=== PATIENT | male | born 1960 | race Two or more races ===

== ENCOUNTER 2022-12-03 07:45 | Emergency (ER) | payer SELFPAY ==
[2022-12-03] VITALS (24 sets, daily range): BP systolic 111–147; BP diastolic 80–99; PULSE 94–130; RESP 10–30; O2SAT 93–100; BMI 35.9
--- NOTE | 2022-12-03 | XR_ITS ---
The [address] [address] Patient Name: LEONORA FLORES MRN: [id number] date: 1960 Sex: M Assigned Patient Location: ER Current Patient Location: Accession/Order Number: [id number] Exam Date: 12/03/2022 07:50 Report Date: 12/03/2022 08:36 At the request of: YAIMA HIGUERA Procedure: XR chest 1V XR chest 1V CLINICAL: CHEST PAIN COMPARISON: No prior studies are available. TECHNIQUE: Single AP view of the chest. FINDINGS: Heart size and pulmonary vasculature are within normal limits. No airspace consolidation or large effusion is seen. Question interstitial infiltrate left lung base. There is marked subcutaneous emphysema throughout the entire chest and supraclavicular regions. No definite pneumothorax is identified radiographically, however there is air along the left paratracheal region below the thoracic inlet suggesting a component of pneumomediastinum. Further evaluation with chest CT is recommended to better assess these findings. XR/XR chest 1V IMPRESSION: Marked diffuse subcutaneous emphysema and suspected pneumomediastinum. Further evaluation with chest CT is recommended. No dense airspace consolidation or pleural effusion. No definite pneumothorax is identified. Interstitial infiltrate suspected at the left lung base. Findings discussed with Dr. Higuera at the time of interpretation 8:30 AM EST 12/03/2022. Electronically authenticated by: CLAUDIO HALL Date: 12/03/2022 08:36
--- NOTE | 2022-12-03 08:22 | XR_ITS ---
The [address] [address] Patient Name: LEONORA FLORES MRN: [id number] date: 1960 Sex: M Assigned Patient Location: ER Current Patient Location: ER Accession/Order Number: [id number] Exam Date: 12/03/2022 09:00 Report Date: 12/03/2022 10:10 At the request of: YAIMA HIGUERA Procedure: XR chest 1V CHEST X-RAY, 1 VIEW HISTORY: Endotracheal tube placement. COMPARISON: 12/03/2022 7:29 AM. FINDINGS: There has been placement of an endotracheal tube distal tip 6.3 cm above the anayeli. There is significant bilateral diffuse subcutaneous emphysema again visualized. The heart size is stable. There is a pneumomediastinum. There are bilateral pneumothoraces. The lungs are grossly clear. There are no pleural effusions. XR/XR chest 1V IMPRESSION: Bilateral pneumothoraces. Pneumomediastinum. Significant diffuse subcutaneous changes emphysema. Endotracheal tube 6.3 cm with above the anayeli. Electronically authenticated by: LANDY RYAN Date: 12/03/2022 10:10
--- NOTE | 2022-12-03 08:22 | XR_ITS ---
The [address] [address] Patient Name: LEONORA FLORES MRN: [id number] date: 1960 Sex: M Assigned Patient Location: ER Current Patient Location: Accession/Order Number: [id number] Exam Date: 12/03/2022 09:00 Report Date: 12/03/2022 10:11 At the request of: YAIMA HIGUERA Procedure: XR pelvis 1-2V PELVIS AP X-RAY 1 VIEW HISTORY: Pain. FINDINGS: The entire pelvis is not imaged. The pubic rami appear intact. There is no evidence of hip dislocation. The evaluation of the right hip is limited due to rotation. There is no evidence of a left hip fracture. There is subcutaneous emphysema. XR/XR pelvis 1-2V IMPRESSION: Limited evaluation, no acute bony abnormality in the visualized pelvis. Subcutaneous emphysema. Electronically authenticated by: LANDY RYAN Date: 12/03/2022 10:11
--- NOTE | 2022-12-03 08:22 | CT_ITS ---
The [address] [address] Patient Name: LEONORA FLORES MRN: [id number] date: 1960 Sex: M Assigned Patient Location: ED.MAIN Current Patient Location: Accession/Order Number: [id number] Exam Date: 12/03/2022 09:00 Report Date: 12/03/2022 10:27 At the request of: YAIMA HIGUERA Procedure: CT abdomen pelvis wo con EXAM: CT head/brain wo con, CT cervical spine wo con, CT chest wo con, CT abdomen pelvis wo con HISTORY: fall COMPARISON: Chest radiograph performed the same day. TECHNIQUE: Axial noncontrast CT imaging of the head and cervical spine was performed with coronal and sagittal reformats. Axial noncontrast CT imaging of the chest, abdomen and pelvis was performed with coronal and sagittal reformats. This CT exam was performed using one or more of the following dose reduction techniques: Automated exposure control, adjustment of the MA and/or kV according to patient size, or use of iterative reconstruction technique. FINDINGS: CT HEAD Calvarium/skull base: No evidence of acute fracture or destructive lesion. Mastoids and middle ears demonstrate no substantial mucosal disease. Paranasal sinuses: No air fluid levels. Brain: No acute intracranial hemorrhage. No acute large vascular territory infarct. No mass lesion or mass effect. No hydrocephalus. CT CERVICAL SPINE Alignment: Straightening of the normal cervical lordosis with trace anterolisthesis of C3 on C4. Vertebrae: Vertebral body heights are maintained. No fracture. Craniocervical junction: No focal abnormality. Degenerative changes: Posterior disc osteophyte complexes and disc height loss are noted at multiple levels greatest at C5-C6 and C6-C7 with at least moderate canal stenosis at C5-C6. Multilevel moderate and/or advanced facet arthropathy is present with multilevel moderate to advanced uncovertebral arthropathy. There is advanced right foraminal stenosis at C4-C5 and advanced bilateral foraminal stenosis at C5-C6 with moderate bilateral foraminal stenosis at C6-C7. Additional Comments: There is severe subcutaneous subcutaneous and deep neck soft tissue emphysema extending to involve the superior parietal and temporal scalp. There is opacification of the nasopharynx likely related to patient's intubated status. There is partial opacification of the bilateral external auditory canals possibly relating to retained cerumen. Multiple dental caries are noted periapical lucency is seen involving the right second bicuspid with associated radicular cyst. CT CHEST Chest wall/thoracic inlet/central airways: There is extensive subcutaneous and deep soft tissue emphysema involving the chest slightly greater anteriorly but seen diffusely throughout the chest wall. Endotracheal tube tip terminates in appropriate position above the level of the anayeli. Thyroid: Visualized portions within normal limits. Mediastinum/ron/axillae: Extensive pneumomediastinum. Heart/vessels: The pulmonary artery and aorta are normal in course and caliber. Heart is normal in size. No pericardial effusion. Pleura/lungs: Relatively small bilateral pneumothorax are present greater anteriorly measuring up to 16 mm on the right and 19 mm on the left. Small bilateral pneumothorax. No gross evidence for overt parenchymal laceration. A left chest wall pigtail thoracostomy tube is present terminating within the anterior pleural space just inside the chest wall. Lungs: No focal airspace disease or edema. MSK: Displaced fractures of the left seventh and eighth ribs are noted laterally. CT ABDOMEN/PELVIS Liver: Within normal limits. Gallbladder/biliary: Cholelithiasis. These pericholecystic fluid likely relating to ascites. Spleen: Within normal limits. Pancreas: Within normal limits. Adrenals: Within normal limits. Kidneys: No radiopaque calculi or hydronephrosis. Peritoneum: There is trace pneumoperitoneum adjacent to the left iliopsoas muscle and iliac vessels (series 3 images 94 through 108. Air is seen involving the abdominal wall musculature and extending to involve the fascial tissues without definite extension to involve the peritoneum. Small volume ascites is present measuring 24 Hounsfield units most consistent with simple fluid. This is greatest along the right abdomen and pelvis. Mesentery: Within normal limits. Extraperitoneum: Within normal limits. Gastrointestinal tract: Hiatal hernia. There is nonspecific wall thickening involving the cecum through proximal transverse colon without adjacent inflammatory stranding. Ureters: Within normal limits. Bladder: Within normal limits. Reproductive System: Within normal limits. Vascular: Atherosclerotic calcification of the abdominal aorta and branch vessels without aneurysm. MSK: No acute osseous or soft tissue findings. Advanced disc height loss with vacuum disc phenomena at the level of L5-S1 with associated left central extrusion with approximately 7 mm caudal migration of disc material with associated vacuum disc. Diffuse disc bulge with at least moderate canal stenosis at L4-L5. CT/CT abdomen pelvis wo con IMPRESSION: CT head and cervical spine 1. No acute intracranial process. 2. No acute fracture or malalignment of the cervical spine. 3. Moderate degenerative changes of cervical spine with multilevel moderate canal stenosis and moderate and/or advanced foraminal stenosis at multiple levels. 4. There is extensive subcutaneous and deep neck emphysema extending to involve the scalp and facial soft tissues. 5. Partially visualized prominent dental disease involving the maxillary teeth. CT chest abdomen pelvis 1. Small bilateral pneumothorax with associated hemothorax. No overt evidence for pulmonary laceration. A left pigtail thoracostomy tube is noted. 2. Extensive pneumomediastinum. 3. Extensive subcutaneous and deep soft tissue emphysema involving the chest and abdominal soft tissues extending into the pelvis. 4. Displace left lateral eighth and ninth rib fractures. 5. Trace pneumoperitoneum is noted. Additionally there is small volume ascites which is abnormal for patient's age. This is nonspecific and it indeterminant in etiology given appearance on remaining abdominal soft tissues although can be seen in the setting of hollow visceral injury. 6. Nonspecific wall thickening involving the right colon with slightly more prominent ascites along the pelvis and right colon. 7. Cholelithiasis. 8. No acute fracture or traumatic malalignment of the thoracic or lumbar spine. 9. Hiatal hernia. Notification of Results Provider/Agent notified: Dr. Ita Higuera Time/Date notified: 12/03/2022 8:22 AM MDT Notifying Staff: Dr. Campbell Electronically authenticated by: MIHIR CAMPBELL Date: 12/03/2022 10:27
--- NOTE | 2022-12-03 08:22 | ECG_ITS ---
The [facility] Test Date: 2022-12-03 Pat Name: LEONORA FLORES Department: Room: - Gender: Male [employer]: : 1960 Requested By: Order Number: [id number] Reading MD: GUS MERCER Measurements Intervals Prospect Rate: 114 P: 76 VT: 184 QRS: -50 QRSD: 84 T: 90 QT: 334 QTc: 401 Interpretive Statements 1120 Sinus tachycardia 1470 with occasional supraventricular premature complexes 3113 Cannot rule out anterior myocardial infarction, probably old 7200 Abnormal left axis deviation 8102 Low QRS voltage in chest leads 0104 ELECTRODE(S) DETACHED ... Repeat ECG is requested 9150 abnormal ECG No previous ECG available for comparison Electronically Signed On 12-03-2022 18:44:36 EDT by GUS MERCER
[2022-12-03 08:49] LABS: Basophils Absolute Auto 0.1 10^3/uL (0.0-0.1); Basophils Percent Auto 0.3 % (0.2-2.0); Eosinophils Absolute Auto 0.1 10^3/uL (0.0-0.7); Eosinophils Percent Auto 0.3 % (0.9-7.0); Immature Granulocytes Abs Auto 0.07 10^3/uL (0.00-0.03); Immature Granulocytes Pct Auto 0.4 % (0.0-0.5); Lymphocytes Absolute Auto 3.1 10^3/uL (1.2-3.8); Mean Corpuscular HGB Conc 34.8 g/dL (29.9-35.2); Mean Corpuscular Hemoglobin 38.2 pg (25.9-34.0); Mean Corpuscular Volume 109.8 fL (80.0-94.0); Mean Platelet Volume 11.1 fL (9.5-13.5); Monocytes Absolute Auto 0.9 10^3/uL (0.3-0.8); Monocytes Percent Auto 5.1 % (1.7-12.0); Neutrophils Absolute Auto 13.2 10^3/uL (1.4-6.5); Neutrophils Percent Auto 75.9 % (43.0-75.0); Platelet Count 179 10^3/uL (150-450); Red Blood Count 4.19 10^6/uL (4.70-6.10); Red Cell Distribution Width 12.4 % (11.0-15.0); White Blood Count 17.4 10^3/uL (4.0-11.0)
[2022-12-03 08:57] LABS: INR 1.23; Prothrombin Time 12.9 sec (9.0-11.6)
[2022-12-03 09:03] LABS: Alanine Aminotransferase 37 U/L (16-63); Albumin Globulin Ratio 0.7; Albumin Level 2.8 g/dL (3.4-5.0); Alkaline Phosphatase 240 U/L (46-116); Anion Gap 20.2; Aspartate Amino Transferase 114 U/L (15-37); BUN Creatinine Ratio 7.6; Bilirubin Total 4.2 mg/dL (0.2-1.0); Calcium 8.4 mg/dL (8.5-10.1); Carbon Dioxide 19.8 mmol/L (21.0-32.0); Chloride 98 mmol/L (98-107); Estimated GFR (African America >60 (>=60); Estimated GFR (Non-African Ame >60 (>=60); Ethanol <3 mg/dL; Glucose 180 mg/dL (74-106); Sodium 135 mmol/L (136-145); Total Protein 6.8 g/dL (6.4-8.2)
[2022-12-03 09:09] LABS: Partial Thromboplastin Time 30.5 sec (22.3-36.2)
--- NOTE | 2022-12-03 09:11 | PC.NURSE ---
pt arrived at 0740 per LS15 from home per EMS pt having allergic reaction. pt states he did have a fall last night hitting his left mid back on a heater. pt arrived with facial swelling, shortness of breath and left sided back pain. Dr. garcia at bedside states pt appears to have pneumothorax. 0751 pt given solumedrol per verbal order. 0752 Dr. Garcia prepping for chest tube insertion. 0752 4mg of morphine given. 0754 chest tube inserted into left side axillary. 0759 chest tube secure. 0800 Dr. Garcia prepping for intubation. 0806 1st intubation attempt. 0807 intubation failed. 0809 2nd intubation attempt. 0810 3rd intubation attempt successful, 7 1/2 sized tube placed 26 at the lip. 0813 etomidate 20mg and 2mg ativan iv push, 0814 fentanyl 25mcg iv push. 0816 soft restrints applied. 0819 pants removed for ann cahteter inserted. pt scrotum found to swollen and full of air. 0820 NG attempted. 0825 2nd ng attempt. 0827 3rd ng attempt per dr. garcia failed. 0836 2nd bag of NS started. 0845 chest tube removed. 0850 2nd chest tube placed. [address] garcia verified chest tube not in right place and tube was pulled and new chest tube placed.
--- NOTE | 2022-12-03 10:05 | ED_ITS ---
HPI - Trauma General Chief Complaint: Trauma Stated Complaint: ALERGIC REACTION Time Seen by Provider: 12/03/22 08:22 Source: patient and other Source comment: EMS Mode of arrival: ambulance History of Present Illness HPI narrative: Initial call to the EMS with because of severe swelling over the the face and the body the patient did fall yesterday and hit the left side of the chest wall with the heater , the patient did recall having difficulty breathing and pain whenever he take a deep breath it pain was more to the left side , the patient speech was hoarse as well upon presentation It was a noted that the EMS gave him epinephrine as well as Benadryl IM Related Data Home Medications Medication Instructions Recorded Confirmed No Known Home Medications 12/03/22 12/03/22 Allergies Allergy/AdvReac Type Severity Reaction Status Date / Time No Known Drug Allergies Allergy Verified 12/03/22 10:37 Review of Systems ROS Status of ROS 10 or more systems reviewed and unremarkable except as noted in history and below Exam Narrative Exam Narrative: Nurses notes and vital signs reviewed and patient pulse ox is at 93% General: Severe edema of the face and upper and lower eyelid the patient voice is hoarsed , severe edema of the upper and lower extremity and crepitus noted all over the Neck/Thyoid: Skin: Warm, dry, no pallor noted. No rash. Head: Normocephalic, atraumatic. Neck: Crepitus in both side of the neck Eye: Severe edema of the upper and lower eyelid and crepitus pupils are equal, round and EOMI. No scleral icterus. Ears, Nose, Mouth, and Throat: TM are clear, no nasal mucosal hypertrophy. Oral mucosa is moist, no posterior oropharynx erythema, uvula is mid-line Cardiovascular: Regular Rate and Rhythm without murmur, gallop or rub. Respiratory: Decreased air entry in the left side and crepitus noted in both sides of the chest wall Lungs are clear to auscultation, no wheezing, rales or rhonchi Chest Wall: no tenderness Back: No midline thoracic or lumbar vertebral tenderness. No CVA tenderness Musculoskeletal: normal ROM, no calf or popliteal tenderness, no lower extremit y edema/swelling GI: Abdomen is soft, but crepitus noted in the abdomen as well as the scrotum shows severe crepitus, Neurological: A&O x4. No cranial nerve dysfunction observed. . Moves all extr emities. Sensation intact. Constitutional Vital Signs, click to edit/add: Last Vital Signs Pulse 94 H 12/03/22 10:50 Resp 13 12/03/22 10:50 BP 111/87 12/03/22 10:46 Pulse Ox 100 12/03/22 10:50 Course Vital Signs Vital signs: Vital Signs Pulse Rate 130 H 12/03/22 07:46 Respiratory Rate 24 12/03/22 07:46 Pulse Oximetry 95 12/03/22 07:46 Pulse Rate 94 H 12/03/22 10:50 Respiratory Rate 13 12/03/22 10:50 Blood Pressure 111/87 12/03/22 10:46 Pulse Oximetry 100 12/03/22 10:50 MDM - Trauma MDM Narrative Medical decision making narrative: Upon presentation it was noted that the patient have severe edema of his face airway examination showed that the patient have a lot of secretion in addition to the fact that he have hoarse voice no swelling of the tongue but the patient have crowded airway Initial the patient had a chest x-ray shows possible pneumothorax in the left side and he had a chest tube placed in the left side that was leaking air upon presentation The patient then was intubated with 7.5 ET tube it was awake intubation due to the patient difficult airway after which the patient received Ativan as well as etomidate and fentanyl Chest x-ray shows proper placement The patient then repeated chest x-ray showed that the patient have the pigtail tube misdirected , patient had replacement of the PEG tube and he had a CT of the chest as well as CT of the abdomen and head and neck EKG showing sinus tachycardia with a heart rate 114 After intubation and chest tube placement the patient more stable right now the heart rate is 100 with a blood pressure of 126/80 The patient right now is stable and I spoke with the Jeremiah Kulkarni in critical care and he accepted the pt , no air transport right now due to the weather condition abgs obtained with femoral artery might need another draw as looks dark an could be venous Is on Versed and fentanyl drip and the patient results of the CAT scan updated to Dr Kulkarni Initially was the plan to change the patient to PRVC after he was on CPAP in case it is needed for the transport but according to the EMS there is no need to change the setting the patient will stay on CPAP for transport The patient right now stable saturating 100% on the CPAP setting of 5 of PEEP and 50% oxygen Lab Data Labs: Lab Results 12/03/22 12/03/22 Range/Units 07:50 10:50 WBC 17.4 H (4.0-11.0) 10^3/uL RBC 4.19 L (4.70-6.10) 10^6/uL Hgb 16.0 (14.0-18.0) g/dL Hct 46.0 (42.0-54.0) % MCV 109.8 H (80.0-94.0) fL MCH 38.2 H (25.9-34.0) pg MCHC 34.8 (29.9-35.2) g/dL RDW 12.4 (11.0-15.0) % Plt Count 179 (150-450) 10^3/uL MPV 11.1 (9.5-13.5) fL Neut % (Auto) 75.9 H (43.0-75.0) % Lymph % (Auto) 18.0 L (20.5-60.0) % Avery % (Auto) 5.1 (1.7-12.0) % Eos % (Auto) 0.3 L (0.9-7.0) % Baso % (Auto) 0.3 (0.2-2.0) % Neut # (Auto) 13.2 H (1.4-6.5) 10^3/uL Lymph # (Auto) 3.1 (1.2-3.8) 10^3/uL Avery # (Auto) 0.9 H (0.3-0.8) 10^3/uL Eos # (Auto) 0.1 (0.0-0.7) 10^3/uL Baso # (Auto) 0.1 (0.0-0.1) 10^3/uL Abs Immat Gran (auto) 0.07 H (0.00-0.03) 10^3/uL Imm/Tot Granulo (auto) 0.4 (0.0-0.5) % PT 12.9 H (9.0-11.6) sec INR 1.23 APTT 30.5 (22.3-36.2) sec Puncture Site R femoral ABG pH 7.272 L* (7.350-7.450) ABG pCO2 43.6 (35.0-45.0) mmHg ABG pO2 52.2 L (80.0-100.0) mmHg ABG HCO3 20.10 L (22.0-26.0) mmol/L ABG O2 Saturation 81.0 % ABG Base Excess -6.80 L (-2.0-2.0) mmol/L Domenico Test Positive (POSITIVE) Vent Mode C-pap FiO2 50 % Pressure Support 5 Sodium 135 L (136-145) mmol/L Potassium 3.0 L (3.5-5.1) mmol/L Chloride 98 (98-107) mmol/L Carbon Dioxide 19.8 L (21.0-32.0) mmol/L Anion Gap 20.2 BUN 8.0 (7.0-18.0) mg/dL Creatinine 1.05 (0.70-1.30) mg/dL Est GFR ( Amer) >60 (>=60) Est GFR (Non-Af Amer) >60 (>=60) BUN/Creatinine Ratio 7.6 Glucose 180 H (74-106) mg/dL Calcium 8.4 L (8.5-10.1) mg/dL Total Bilirubin 4.2 H (0.2-1.0) mg/dL AST 114 H (15-37) U/L ALT 37 (16-63) U/L Alkaline Phosphatase 240 H (46-116) U/L Total Protein 6.8 (6.4-8.2) g/dL Albumin 2.8 L (3.4-5.0) g/dL Globulin 4.0 g/dL Albumin/Globulin Ratio 0.7 Ethanol Quant <3 mg/dL Blood Type O Positive Antibody Screen Negative Critical Care Time Critical Care Time Critical Care Time: Yes Total Critical Care Time: 120 Attestation: The patient upon presentation was critical with a chest tube placement as well as the intubation and bedside evaluation to make sure that the patient is stable as well as an evaluation the CAT scan and replacement of the chest tube Discharge Plan Discharge Chief Complaint: Trauma Clinical Impression: Airway compromise, Chest wall trauma, Left rib fracture, Bilateral pneumothorax, Facial edema, Fall Patient Disposition: [facility] Time of Disposition Decision: 11:06 Discharge Location: [facility] Condition: Fair Mode of Transportation: EMS Discharge Date/Time: 12/03/22 11:13
[2022-12-03] MEDS: MORPHINE SULFATE 4 MG/ML VIAL IV (10:11)
[2022-12-03] MEDS: FENTANYL CITRATE/PF 100 MCG/2 ML VIAL 25 MCG IV (10:12)
[2022-12-03] MEDS: METHYLPREDNISOLONE SOD SUCC PF 125 MG/2 ML VIAL IVP (10:12)
[2022-12-03] MEDS: 0.9 % SODIUM CHLORIDE 1,000 ML 999 ML IV (10:13)
[2022-12-03] MEDS: FENTANYL CITRATE/PF 1,000 MCG in 0.9 % SODIUM CHLORIDE 80 ML 5.67 MCG IV (10:13)
[2022-12-03] MEDS: MIDAZOLAM HCL 100 MG in 0.9 % SODIUM CHLORIDE 80 ML IV (10:14)
[2022-12-03] MEDS: 0.9 % SODIUM CHLORIDE 500 ML 1000 ML IV (10:22)
[2022-12-03 11:09] LABS: ABG PCO2 43.6 mmHg (35.0-45.0); PO2 ABG 52.2 mmHg (80.0-100.0); pH ABG 7.272 (7.350-7.450)
[2022-12-03 11:11] LABS: Allen Test POSITIVE (POSITIVE); Fractionated Inspired Oxygen 50 %; O2 Mode VENT; Puncture Site R FEMORAL
[2022-12-03 11:12] LABS: Pressure Support 5; Vent Mode C-PAP
== END 2022-12-03 11:13 | disposition short-term general hospital (02) ==
PROVIDERS: Emergency Provider Emergency Medicine
DX: S27.0XXA Traumatic pneumothorax, initial encounter (principal); R60.9 Edema, unspecified; S22.42XA Multiple fractures of ribs, left side, initial encounter for closed fracture; W19.XXXA Unspecified fall, initial encounter
CPT/HCPCS: 31500; 32551; 36415; 36600; 70450; 71045; 71250; 72125; 72170; 74176; 80053; 80307; 80320; 82805; 85025; 85610; 85730; 86850; 86900; 86901; 93005; 94002; 96374; 96375; 99285; J2930